=== PATIENT | female | born 1950 | race Hispanic/Latino ===

== ENCOUNTER → 2023-02-21 | Outpatient (CLI) | payer OTHER ==
[~2023-02-21] MED LIST: ACET-66 PO; ASPI-1012 PO; CALC1TAB85 PO; CELE200 PO; GADOTERATE MEGLUMINE 10 MMOL/20 ML VIAL IV ONE; LEVO25TA54 PO; OXYC5 PO; PREG25 PO; TRAM50TA4 PO
== END | disposition home or self-care (01) ==
LOC: RAH 08:06
PROVIDERS: ATTEND Family Medicine
DX: R93.0 Abnormal findings on diagnostic imaging of skull and head, not elsewhere classified (principal)
CPT/HCPCS: 70553; A9575

== ENCOUNTER → 2023-02-24 | Outpatient (CLI) | payer OTHER ==
[~2023-02-24] MED LIST changes: -GADOTERATE MEGLUMINE 10 MMOL/20 ML VIAL IV ONE; +IOHEXOL 350 MG/ML 100ML INFUS..BTL IV ONE
== END | disposition home or self-care (01) ==
LOC: RAH 07:56
PROVIDERS: ATTEND Internal Medicine Cardiovascular Disease
DX: R16.1 Splenomegaly, not elsewhere classified (principal); I72.8 Aneurysm of other specified arteries; R93.0 Abnormal findings on diagnostic imaging of skull and head, not elsewhere classified
CPT/HCPCS: 74174; Q9967

== ENCOUNTER → 2024-06-13 | Outpatient (CLI) | payer OTHER ==
[~2024-06-13] MED LIST changes: -IOHEXOL 350 MG/ML 100ML INFUS..BTL IV ONE
[2024-06-13 12:33] LABS: CREATININE 0.8 mg/dL (0.5-1.0)
== END | disposition home or self-care (01) ==
LOC: LAB 11:32
PROVIDERS: ATTEND Internal Medicine Gastroenterology
DX: R19.00 Intra-abdominal and pelvic swelling, mass and lump, unspecified site (principal)
CPT/HCPCS: 36415; 82565; 84520

== ENCOUNTER → 2024-06-28 | Outpatient (CLI) | payer OTHER ==
[~2024-06-28] MED LIST changes: +IOHEXOL-350 75 ML VIAL IV ONE
--- NOTE | 2024-06-28 09:40 | HMCIMG ---
CT ABDOMEN W/WO CONTRAST HISTORY: Swelling COMPARISON: None TECHNIQUE: Multiple sequential axial images of the abdomen were obtained from the dome of the diaphragm through iliac crests. Patient was given 75 cc of Omnipaque through intravenous route. Oral contrast was given. FINDINGS: No pleural effusion is seen bilaterally. There is no evidence of parenchymal disease or pulmonary nodule of the visualized lower lungs. Degenerative changes are seen of the thoracolumbar spine. Then liver measured 15 cm. Gallbladder is distended with small amount of pericholecystic fluid. The liver, spleen, adrenal glands and pancreas are unremarkable. There is no evidence of hydronephrosis bilaterally. No evidence of renal stone is seen. Fecal material is seen in the colon. There are normal-sized retroperitoneal and mesenteric lymph nodes. No ascites is seen. No bowel obstruction is seen. IMPRESSION: 1. Distended gallbladder with small amount of pericholecystic fluid. No ascites is seen. No bowel obstruction is seen. CT was performed with one or more following dose reduction techniques: automated exposure control, adjustment of the mA and kv according to patient's size, or use of a iterative reconstruction technique.
== END | disposition home or self-care (01) ==
LOC: RAH 08:04
PROVIDERS: ATTEND Internal Medicine Gastroenterology
DX: K82.8 Other specified diseases of gallbladder (principal); R19.00 Intra-abdominal and pelvic swelling, mass and lump, unspecified site; M47.814 Spondylosis without myelopathy or radiculopathy, thoracic region
CPT/HCPCS: 74170; Q9967